=== PATIENT | male | born 1950 | race African-American/Black ===

== ENCOUNTER 2017-01-28 09:28 | Inpatient (IN) | payer OTHER ==
[~2017-01-28] VITALS: Ht 170.2 cm; Wt 58.6 kg
[~2017-01-28 09:28] MED LIST: AMIODARONE HCL200 MG PO; ASPIRIN CHEWABL81 MG PO; BUMEX1 MG PO; CEFDINIR300 MG PO; COREG3.125 MG PO; DIGITEK125 MCG PO; LIPITOR40 MG PO; SYMBICORT 16010.2 GM INH; ZESTRIL2.5 MG PO
[2017-01-28 10:33] LABS: INR 1.07 (0.9-1.2); PTT 27.5 SECONDS (24.3-32.1)
[2017-01-28 10:34] LABS: D-DIMER 1.53 ug/mLFEU (0.00-0.41)
[2017-01-28 10:39] LABS: ALBUMIN 3.4 g/dL (3.4-4.8); BILIRUBIN - TOTAL 0.9 mg/dL (0.1-1.0); CREATININE 1.4 mg/dL (0.7-1.2); GLOBULIN (CALCULATION) 2.9 g/dL (2.2-4.2); POTASSIUM 3.7 mmol/L (3.5-5.1); TOTAL PROTEIN 6.3 g/dL (6.4-8.3)
[2017-01-28 10:41] LABS: CKMB 4.62 ng/mL (0.97-4.94); TROPONIN T 0.03 ng/mL
[2017-01-28 10:44] LABS: BASOPHIL 0.9 % (0-2); EOSINOPHIL 2.1 % (0-7); HCT 41.3 % (42.0-52.0); HGB 13.2 g/dl (13.2-18.0); LYMPHOCYTE 32.3 % (15-48); MCV 96.9 fL (78.0-100.0); MPV 11.2 fL (6.0-9.5); NEUTROPHIL 58.7 % (41-80); PLT 191 K/uL (150-400); RBC 4.26 M/uL (4.70-6.00); RDW 16.1 % (11.5-14.0); WBC 4.3 K/uL (4.0-10.5)
[2017-01-28 11:36] LABS: BILIRUBIN NEGATIVE (NEGATIVE); BLOOD NEGATIVE Ery/uL (NEGATIVE); CLARITY CLEAR (CLEAR); COLOR YELLOW (YELLOW); GLUCOSE (U) NORMAL (NORMAL); KETONE (U) NEGATIVE (NEGATIVE); LEUKOCYTES NEGATIVE Leu/uL (NEGATIVE); NITRITE NEGATIVE (NEGATIVE); PROTEIN NEGATIVE (NEGATIVE); UROBILINOGEN 0.2 mg/dL (0.2-1.0)
[2017-01-28 16:48] LABS: CKMB 3.81 ng/mL (0.97-4.94); TROPONIN T 0.034 ng/mL
[2017-01-28 22:23] LABS: CKMB 3.45 ng/mL (0.97-4.94); TROPONIN T 0.034 ng/mL
[2017-01-29 05:58] LABS: BASOPHIL 1.1 % (0-2); EOSINOPHIL 3.1 % (0-7); HCT 39.7 % (42.0-52.0); HGB 12.9 g/dl (13.2-18.0); LYMPHOCYTE 29.6 % (15-48); MCH 31.5 pg (25.0-31.0); MCHC 32.5 g/dL (32.0-36.0); MCV 96.8 fL (78.0-100.0); NEUTROPHIL 59.2 % (41-80); PLT 204 K/uL (150-400); RDW 16.1 % (11.5-14.0); WBC 4.5 K/uL (4.0-10.5)
[2017-01-29 07:20] LABS: CREATININE 1.5 mg/dL (0.7-1.2); MAGNESIUM 2.07 mg/dL (1.40-2.10); POTASSIUM 4.9 mmol/L (3.5-5.1)
[2017-01-30 05:55] LABS: BASOPHIL 1.2 % (0-2); EOSINOPHIL 2.5 % (0-7); HCT 41.3 % (42.0-52.0); HGB 13.5 g/dl (13.2-18.0); MCH 31.4 pg (25.0-31.0); MCHC 32.7 g/dL (32.0-36.0); MONOCYTE 6.7 % (0-12); MPV 11.1 fL (6.0-9.5); NEUTROPHIL 61.6 % (41-80); PLT 211 K/uL (150-400); RDW 15.7 % (11.5-14.0); WBC 5.1 K/uL (4.0-10.5)
[2017-01-30 06:19] LABS: CREATININE 1.9 mg/dL (0.7-1.2); MAGNESIUM 1.95 mg/dL (1.40-2.10); POTASSIUM 4.3 mmol/L (3.5-5.1)
[2017-01-31 05:26] LABS: BASOPHIL 1.1 % (0-2); EOSINOPHIL 2.9 % (0-7); HCT 41.8 % (42.0-52.0); HGB 13.8 g/dl (13.2-18.0); LYMPHOCYTE 27.2 % (15-48); MCH 32.4 pg (25.0-31.0); MCV 98.1 fL (78.0-100.0); MONOCYTE 7.4 % (0-12); MPV 10.7 fL (6.0-9.5); NEUTROPHIL 61.4 % (41-80); PLT 184 K/uL (150-400); RBC 4.26 M/uL (4.70-6.00); RDW 15.7 % (11.5-14.0); WBC 4.8 K/uL (4.0-10.5)
[2017-01-31 05:50] LABS: ALBUMIN 3.1 g/dL (3.4-4.8); BILIRUBIN - TOTAL 0.3 mg/dL (0.1-1.0); CREATININE 1.5 mg/dL (0.7-1.2); GLOBULIN (CALCULATION) 2.5 g/dL (2.2-4.2); MAGNESIUM 2.01 mg/dL (1.40-2.10); PHOSPHORUS 4.1 mg/dL (2.7-4.5); POTASSIUM 4.8 mmol/L (3.5-5.1); TOTAL PROTEIN 5.6 g/dL (6.4-8.3)
[2017-02-01 05:39] LABS: BASOPHIL 1.1 % (0-2); EOSINOPHIL 2.9 % (0-7); HCT 44.7 % (42.0-52.0); HGB 14.9 g/dl (13.2-18.0); LYMPHOCYTE 30.6 % (15-48); MCH 31.6 pg (25.0-31.0); MCHC 33.3 g/dL (32.0-36.0); MCV 94.9 fL (78.0-100.0); MONOCYTE 9.4 % (0-12); MPV 10.7 fL (6.0-9.5); PLT 229 K/uL (150-400); RBC 4.71 M/uL (4.70-6.00); RDW 15.5 % (11.5-14.0); WBC 4.5 K/uL (4.0-10.5)
[2017-02-01 06:06] LABS: ALBUMIN 3.4 g/dL (3.4-4.8); BILIRUBIN - TOTAL 0.4 mg/dL (0.1-1.0); CREATININE 1.4 mg/dL (0.7-1.2); GLOBULIN (CALCULATION) 3.4 g/dL (2.2-4.2); POTASSIUM 4.6 mmol/L (3.5-5.1); TOTAL PROTEIN 6.8 g/dL (6.4-8.3)
[2017-02-02 05:47] LABS: BASOPHIL 0.9 % (0-2); EOSINOPHIL 2.7 % (0-7); HCT 44.9 % (42.0-52.0); LYMPHOCYTE 25.1 % (15-48); MCH 31.8 pg (25.0-31.0); MCHC 33.4 g/dL (32.0-36.0); MCV 95.1 fL (78.0-100.0); MPV 10.6 fL (6.0-9.5); NEUTROPHIL 64.3 % (41-80); PLT 266 K/uL (150-400); RBC 4.72 M/uL (4.70-6.00); RDW 15.7 % (11.5-14.0); WBC 5.6 K/uL (4.0-10.5)
[2017-02-02 06:08] LABS: ALBUMIN 3.5 g/dL (3.4-4.8); BILIRUBIN - TOTAL 0.3 mg/dL (0.1-1.0); CREATININE 1.7 mg/dL (0.7-1.2); GLOBULIN (CALCULATION) 3.3 g/dL (2.2-4.2); MAGNESIUM 2.13 mg/dL (1.40-2.10); POTASSIUM 4.5 mmol/L (3.5-5.1); TOTAL PROTEIN 6.8 g/dL (6.4-8.3)
[2017-02-03 07:11] LABS: HCT 45.3 % (42.0-52.0); MCH 31.4 pg (25.0-31.0); MCHC 33.1 g/dL (32.0-36.0); MPV 10.5 fL (6.0-9.5); RBC 4.77 M/uL (4.70-6.00); RDW 15.5 % (11.5-14.0); WBC 5.2 K/uL (4.0-10.5)
[2017-02-03 07:31] LABS: ALBUMIN 3.6 g/dL (3.4-4.8); BILIRUBIN - TOTAL 0.3 mg/dL (0.1-1.0); CREATININE 1.9 mg/dL (0.7-1.2); GLOBULIN (CALCULATION) 3.3 g/dL (2.2-4.2); MAGNESIUM 2.37 mg/dL (1.40-2.10); POTASSIUM 4.6 mmol/L (3.5-5.1); TOTAL PROTEIN 6.9 g/dL (6.4-8.3)
== END 2017-02-04 11:25 | disposition home health service (06) | DRG 291 ==
LOC: FER 09:28 → FTCU 12:38 → FER 13:44 → FMS 02-03 17:27
PROVIDERS: Emergency Medicine; Internal Medicine; Internal Medicine Cardiovascular Disease; ADMIT Internal Medicine
DX: I13.0 Hypertensive heart and chronic kidney disease with heart failure and stage 1 through stage 4 chronic kidney disease, or unspecified chronic kidney disease (principal); I50.23 Acute on chronic systolic (congestive) heart failure; J96.01 Acute respiratory failure with hypoxia; N17.9 Acute kidney failure, unspecified; N18.3 Chronic kidney disease, stage 3 (moderate); I35.0 Nonrheumatic aortic (valve) stenosis; Z91.19 Patient's noncompliance with other medical treatment and regimen; Z79.82 Long term (current) use of aspirin; I42.0 Dilated cardiomyopathy; I27.2 Other secondary pulmonary hypertension; F17.210 Nicotine dependence, cigarettes, uncomplicated; J44.9 Chronic obstructive pulmonary disease, unspecified; E78.5 Hyperlipidemia, unspecified; Z95.810 Presence of automatic (implantable) cardiac defibrillator; I34.0 Nonrheumatic mitral (valve) insufficiency
CPT/HCPCS: 36415; 36600; 71010; 71275; 80048; 80053; 80061; 80162; 81003; 82550; 82553; 82803; 83735; 83880; 84100; 84484; 85025; 85379; 85610; 85730; 93005; 94010; 94640; 97116; 97163; 97167; 97530; 97530-GP; 97535; J1940; J2270; J2405; Q9967